=== PATIENT | male | born 1975 ===

== ENCOUNTER 2017-08-20 10:25 | Emergency (ER) | payer SELFPAY ==
[~2017-08-20] VITALS: Ht 170.2 cm; Wt 74.8 kg
[2017-08-20] MEDS ORDERED: KETOROLAC 30 MG/ML VIAL IVP STA (10:29)
[2017-08-20] MEDS ORDERED: LACTATED RINGERS 1,000 ML IV ONE (10:29)
[2017-08-20] MEDS ORDERED: ONDANSETRON 4 MG/2 ML (SDV) Z0FRAN IVP ONE (10:30)
[2017-08-20 10:42] LABS: BASOPHILS % (AUTO) 0 % (0-10); EOSINOPHILS # (AUTO) 0.1 10^3/uL (0.0-0.3); EOSINOPHILS % (AUTO) 1 % (0-10); HEMATOCRIT 42 % (40-54); HEMOGLOBIN 14.9 G/DL (13.3-17.7); LYMPHOCYTES # (AUTO) 1.6 X 10^3 (1.0-4.0); LYMPHOCYTES % (AUTO) 20 % (12-44); MEAN CORPUSCULAR HEMOGLOBIN 28 PG (25-34); MEAN CORPUSCULAR HGB CONC 35 G/DL (32-36); MEAN CORPUSCULAR VOLUME 81 FL (80-99); MEAN PLATELET VOLUME 9.8 FL (7.4-10.4); MONOCYTES # (AUTO) 0.6 X 10^3 (0.0-1.0); MONOCYTES % (AUTO) 8 % (0-12); NEUTROPHILS % (AUTO) 72 % (42-75); PLATELET COUNT 288 10^3/uL (130-400); RED BLOOD COUNT 5.27 10^6/uL (4.35-5.85); RED CELL DISTRIBUTION WIDTH 14.1 % (10.0-14.5); WHITE BLOOD COUNT 8.4 10^3/uL (4.3-11.0)
[2017-08-20] MEDS ORDERED: fentaNYL INJECTION 100 MCG/2 ML AMP IVP STA (10:55)
[2017-08-20 11:06] LABS: ALANINE AMINOTRANSFERASE 37 U/L (0-55); ALBUMIN 4.3 GM/DL (3.2-4.5); ALKALINE PHOSPHATASE 77 U/L (40-136); AMYLASE 64 U/L (25-125); BILIRUBIN,TOTAL 0.4 MG/DL (0.1-1.0); BUN/CREATININE RATIO 12; CALCIUM 9.4 MG/DL (8.5-10.1); CARBON DIOXIDE 21 MMOL/L (21-32); CHLORIDE 109 MMOL/L (98-107); GFR ESTIMATED > 60; GLUCOSE 113 MG/DL (70-105); LIPASE 11 U/L (8-78); POTASSIUM 3.4 MMOL/L (3.6-5.0); SODIUM 141 MMOL/L (135-145); TOTAL PROTEIN 7.6 GM/DL (6.4-8.2)
--- NOTE | 2017-08-20 11:32 | Diagnostic Imaging Report ---
PROCEDURE: CT urinary tract, rule out kidney stone. TECHNIQUE: Multiple contiguous axial images were obtained through the abdomen and pelvis without the use of intravenous contrast. INDICATION: Sharp left-sided abdominal pain. No prior studies are available for comparison. FINDINGS: The lung bases are clear. No discrete liver mass is identified. The gallbladder is unremarkable. The pancreas and spleen are unremarkable. No adrenal mass is identified. No renal calculi are seen. There is a calculus located at the left UPJ measuring approximately 4 mm. Mild hydronephrosis is present. Remainder of the ureters are unremarkable. No bladder calculi are identified. The small and large bowel loops of normal caliber. There is no ascites. IMPRESSION: 4 mm left UPJ calculus producing mild hydronephrosis. Study is otherwise unremarkable. Dictated by: Dictated on workstation # [id number]
[2017-08-20] MEDS ORDERED: TAMS0.4C98 PO (11:59)
[2017-08-20] MEDS ORDERED: HYDR-87 PO (11:59)
[2017-08-20] MEDS ORDERED: ONDA4TAB8 PO (11:59)
[2017-08-20] MEDS ORDERED: NITR-65 PO (11:59)
[2017-08-20] MEDS ORDERED: ALFUZOSIN HCL 10 MG TAB (UROXATRAL) PO SCH (12:00)
--- NOTE | 2017-08-20 12:00 | ED Abdominal Pain ---
General Chief Complaint: Abdominal/GI Problems Stated Complaint: ABD PAIN Nursing Triage Note: ASSISTED PT OUT OF THE CAR INTO ROOM 08. COMPLAINS OF SEVERE ABD PAIN STARTING THIS AM. Sepsis Screen: No Definite Risk Source of Information: Acid Regenerator (PT'S SON IS ANTHROPOLOGIST PHYSICAL) Exam Limitations: Language Barrier (PT DOES NOT SPEAK INDONESIAN) History of Present Illness Date Seen by Provider: Aug 20, 2017 Time Seen by Provider: 10:20 Initial Comments PT ARRIVES VIA POV --HAD TO BE REMOVED FROM VEHICLE BY MULTIPLE STAFF MEMBERS THEY DROVE HERE FROM THEIR HOME IN [place]--GIVE NO REASON WHY THEY DID NOT GO TO [facility] C/O SEVERE LEFT MID AND LOWER ABDOMINAL PAIN --BEGAN 1 HOUR AGO + NAUSEA, NO VOMITING NO URINARY SYMPTOMS NO HISTORY OF SIMILAR HAS NOT TAKEN ANYTHING FOR PAIN Allergies and Home Medications Allergies Coded Allergies: No Known Drug Allergies (Unverified , 08/20/17) Home Medications Hydrocodone/Ibuprofen 1 Each Tablet, 1-2 EACH PO Q4H Prescribed by: JOSE ROBERTO MATHEW on 08/20/17 1159 Nitrofurantoin Monohyd/M-Cryst 100 Mg Capsule, 100 MG PO BID Prescribed by: JOSE ROBERTO MATHEW on 08/20/17 1159 Ondansetron 4 Mg Tab.rapdis, 4 MG PO Q4H Prescribed by: JOSE ROBERTO MATHEW on 08/20/17 1159 Tamsulosin HCl 0.4 Mg Cap, 0.4 MG PO DAILY Prescribed by: JOSE ROBERTO MATHEW on 08/20/17 1159 Patient Home Medication List Home Medication List Reviewed: Yes Review of Systems Constitutional: diaphoresis, other (VERY LIMITED) Gastrointestinal: Abdominal Pain, Nausea; Denies Vomiting Genitourinary: No Symptoms Reported Past Xrhxzhy-Gnltmq-Nzniwj Hx Patient Social History Alcohol Use: Denies Use Recreational Drug Use: No Smoking Status: Never a Smoker Recent Foreign Travel: No Contact w/Someone Who Travel: No Recent Infectious Disease Expo: No Recent Hopitalizations: No Seasonal Allergies Seasonal Allergies: No Past Medical History Surgeries: No Respiratory: No Cardiac: No Neurological: No Genitourinary: Yes Kidney Stones Gastrointestinal: No Musculoskeletal: No Endocrine: No Cancer: No Psychosocial: No Integumentary: No Physical Exam Vital Signs Vital Signs - First Documented 08/20/17 08/20/17 10:25 13:09 Temp 98.0 Pulse 59 Resp 16 B/P (MAP) 147/98 (114) Pulse Ox 100 O2 Delivery Room Air Capillary Refill : Less Than 3 Seconds Height/Weight/BMI Height: 5'7.00" Weight: 165lbs.oz.74.455081ug; BMI Method:Estimated General Appearance: other (HYPERVENTILATING, VERY DRAMATIC, HOLDING LEFT MID ABDOMEN. 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, no motor/sensory deficits, alert Skin: normal color, warm/dry, diaphoresis, pallor Progress/Results/Core Measures Results/Orders Lab Results Laboratory Tests Test 08/20/17 10:35 08/20/17 12:04 Range/Units White Blood Count 8.4 4.3-11.0 10^3/uL Red Blood Count 5.27 4.35-5.85 10^6/uL Hemoglobin 14.9 13.3-17.7 G/DL Hematocrit 42 40-54 % Mean Corpuscular Volume 81 80-99 FL Mean Corpuscular Hemoglobin 28 25-34 PG Mean Corpuscular Hemoglobin Concent 35 32-36 G/DL Red Cell Distribution Width 14.1 10.0-14.5 % Platelet Count 288 130-400 10^3/uL Mean Platelet Volume 9.8 7.4-10.4 FL Neutrophils (%) (Auto) 72 42-75 % Lymphocytes (%) (Auto) 20 12-44 % Monocytes (%) (Auto) 8 0-12 % Eosinophils (%) (Auto) 1 0-10 % Basophils (%) (Auto) 0 0-10 % Neutrophils # (Auto) 6.0 1.8-7.8 X 10^3 Lymphocytes # (Auto) 1.6 1.0-4.0 X 10^3 Monocytes # (Auto) 0.6 0.0-1.0 X 10^3 Eosinophils # (Auto) 0.1 0.0-0.3 10^3/uL Basophils # (Auto) 0.0 0.0-0.1 10^3/uL Sodium Level 141 135-145 MMOL/L Potassium Level 3.4 L 3.6-5.0 MMOL/L Chloride Level 109 H 98-107 MMOL/L Carbon Dioxide Level 21 21-32 MMOL/L Anion Gap 11 5-14 MMOL/L Blood Urea Nitrogen 11 7-18 MG/DL Creatinine 0.90 0.60-1.30 MG/DL Estimat Glomerular Filtration Rate > 60 BUN/Creatinine Ratio 12 Glucose Level 113 H 70-105 MG/DL Calcium Level 9.4 8.5-10.1 MG/DL Total Bilirubin 0.4 0.1-1.0 MG/DL Aspartate Amino Transf (AST/SGOT) 24 5-34 U/L Alanine Aminotransferase (ALT/SGPT) 37 0-55 U/L Alkaline Phosphatase 77 40-136 U/L Total Protein 7.6 6.4-8.2 GM/DL Albumin 4.3 3.2-4.5 GM/DL Amylase Level 64 25-125 U/L Lipase 11 8-78 U/L Urine Color BROWN H Urine Clarity VERY CLOUDY H Urine pH 5 5-9 Urine Specific Norris 1.020 1.016-1.022 Urine Protein 3+ H NEGATIVE Urine Glucose (UA) NEGATIVE NEGATIVE Urine Ketones NEGATIVE NEGATIVE Urine Nitrite POSITIVE H NEGATIVE Urine Bilirubin NEGATIVE NEGATIVE Urine Urobilinogen 1 NORMAL MG/DL Urine Leukocyte Esterase 2+ H NEGATIVE Urine RBC (Auto) 5+ H NEGATIVE Urine RBC TNTC H /HPF Urine WBC 2-5 /HPF Urine Squamous Epithelial Cells 0-2 /HPF Urine Crystals PRESENT H /LPF Urine Amorphous Sediment FEW CHAI URATES H /LPF Urine Bacteria FEW H /HPF Urine Casts NONE /LPF Urine Mucus NEGATIVE /LPF Urine Culture Indicated YES My Orders Orders - JOSE ROBERTO MATHEW DO Ct Abd/Pelvis Wo(Kidney Stone) (08/20/17 10:29) Amylase (08/20/17 10:29) Cbc With Automated Diff (08/20/17 10:29) Comprehensive Metabolic Panel (08/20/17 10:29) Lipase (08/20/17 10:29) Ua Culture If Indicated (08/20/17 10:29) Acute Abd Series (08/20/17 10:29) Saline Lock/Iv-Start (08/20/17 10:29) Ketorolac Injection (Toradol Injection) (08/20/17 10:29) Ondansetron Injection (Zofran Injectio (08/20/17 10:30) Saline Lock/Iv-Start (08/20/17 10:29) Lactated Ringers (Lr 1000 Ml Iv Solution (08/20/17 10:29) Fentanyl Injection (Sublimaze Injection (08/20/17 10:55) Alfuzosin (Not Stocked) (Uroxatral (Not (08/20/17 12:00) Saline Lock/Iv-Start (08/20/17 12:04) Ns Iv 1000 Ml (Sodium Chloride 0.9%) (08/20/17 12:04) Urine Culture (08/20/17 12:04) Medications Given in ED Current Medications Medications Dose Ordered Sig/Jovani Route Start Time Stop Time Status Last Admin Dose Admin Lactated Ringer's 1,000 ml @ 0 mls/hr Q0M ONCE IV 08/20/17 10:29 08/20/17 10:31 DC 08/20/17 10:43 1,000 MLS/HR Ondansetron HCl 4 mg ONCE ONCE IVP 08/20/17 10:30 08/20/17 10:31 DC 08/20/17 10:43 4 MG Sodium Chloride 1,000 ml @ 0 mls/hr Q0M ONCE IV 08/20/17 12:04 08/20/17 12:05 DC 08/20/17 12:11 1,000 MLS/HR Vital Signs/I&O 08/20/17 08/20/17 10:25 13:09 Temp 98.0 Pulse 59 79 Resp 16 16 B/P (MAP) 147/98 (114) 148/97 Pulse Ox 100 98 O2 Delivery Room Air Blood Pressure Mean: 114 Progress Progress Note : Progress Note ALL SYMPTOMS COMPLETELY RESOLVED AT DISMISSAL VOIDED AFTER 1 LITER OF FLUIDS AND VERY DARK AND TEA COLORED--ADDITIONAL FLUIDS GIVEN AT DISMISSAL, PT NOW STATES THAT HE HAS HAD THIS BEFORE APPROXIMATELY 12 YEARS AGO IN [facility] AND THEY TOLD HIM THAT IT WAS A KIDNEY STONE AT THAT TIME, AND FEELS EXACTLY THE SAME THIS TIME. PT PASSED IT ON HIS OWN. Diagnostic Imaging Comments CT ABDOMEN/PELVIS--4 MM PROXIMAL LEFT URETERAL STONE WITH MILD HYDRONEPHROSIS, PER RADIOLOGIST REPORT @ 1143 ACUTE ABDOMEN XRAYS--PROXIMAL LEFT URETERAL CALCULUS-PER RADIOLOGIST REPORT @ 1322 Reviewed: Reviewed by Me Departure Communication (Admissions) 1143--ATTEMPTING TO CONTACT DR. BARKSDALE. HE IS OUT OF TOWN UNTIL TOMORROW Impression Primary Impression: Kidney stone on left side Disposition: HOME, SELF-CARE Condition: Improved Departure-Patient Inst. Referrals: JACQUES BARKSDALE MD Patient Instructions: Kidney Stones (DC) Add. Discharge Instructions: LOTS OF CLEAR LIQUIDS STRAIN ALL URINE--RETURN ANY STONES TO DR. BARKSDALE'S OFFICE FOLLOW UP WITH DR BARKSDALE SOON POSSIBLE --CALL TODAY FOR APPOINTMENT RETURN TO ER IF SYMPTOMS WORSEN All discharge instructions reviewed with patient and/or family. Voiced understanding. Scripts Hydrocodone/Ibuprofen (Hydrocodone-Ibuprofen 7.5-200) 1 Each Tablet 1-2 EACH PO Q4H for Pain, #20 TAB Prov: JOSE ROBERTO MATHEW DO 08/20/17 Ondansetron (Zofran Odt) 4 Mg Tab.rapdis 4 MG PO Q4H for Nausea/Vomiting, #10 TAB Prov: JOSE ROBERTO MATHEW DO 08/20/17 Nitrofurantoin Monohyd/M-Cryst (Macrobid 100 mg Capsule) 100 Mg Capsule 100 MG PO BID, #20 CAP Prov: JOSE ROBERTO MATHEW DO 08/20/17 Tamsulosin HCl (Flomax) 0.4 Mg Cap 0.4 MG PO DAILY, #10 CAP Prov: JOSE ROBERTO MATHEW DO 08/20/17 JOSE ROBERTO MATHEW DO Aug 20, 2017 12:00
[2017-08-20] MEDS ORDERED: NS IV 1000 ML 1,000 ML IV ONE (12:04)
[2017-08-20 12:22] LABS: BILIRUBIN,URINE NEGATIVE (NEGATIVE); CLARITY,URINE VERY CLOUDY; GLUCOSE, URINE (UA) NEGATIVE (NEGATIVE); KETONES,URINE NEGATIVE (NEGATIVE); LEUKOCYTE ESTERASE ,URINE 2+ (NEGATIVE); NITRITE,URINE POSITIVE (NEGATIVE); PH,URINE 5 (5-9); PROTEIN,URINE 3+ (NEGATIVE); UROBILINOGEN,URINE 1 MG/DL (NORMAL)
[2017-08-20 12:32] LABS: BACTERIA,URINE FEW /HPF; COLOR,URINE BROWN; RBC,URINE TNTC /HPF; SQUAMOUS EPITHELIAL CELL,UR 0-2 /HPF
[2017-08-20 12:33] LABS: AMORPHOUS SEDIMENT,UR FEW AMOR URATES /LPF
--- NOTE | 2017-08-20 12:53 | Diagnostic Imaging Report ---
INDICATION: Severe abdominal pain on the left side. TIME OF EXAMINATION: 11:55 a.m. FINDINGS: The heart size is normal. The lungs are clear. No free air is identified. Tiny calcific density proximal left ureter is noted, corresponding with the UPJ calculus noted on CT. No other urinary tract calculi are identified. Bowel gas pattern is unremarkable. IMPRESSION: Proximal left ureteral calculus. The study is otherwise unremarkable. Dictated by: Dictated on workstation # [id number]
[2017-08-20 13:09] VITALS: BP 148/97
== END 2017-08-20 13:09 | disposition home or self-care (01) ==
LOC: ER 10:28
DX: N20.0 Calculus of kidney (principal); Z87.442 Personal history of urinary calculi
CPT/HCPCS: 36415; 74022; 74176; 80053; 81000; 82150; 83690; 85025; 87088; 96361; 96374; 96375